=== PATIENT | male | born 1990 | race Two or more races ===

== ENCOUNTER → 2016-03-01 | Outpatient (REF) | payer OTHER ==
[2016-03-01 14:11] LABS: PROGRESSIVE MOTILITY (a) 38 % (>=32)
[2016-03-01 14:12] LABS: % NORMAL FORMS 10 % (>=4); IMMOTILITY 55 %; NON PROGRESSIVE MOTILITY (c) 7 %; SPERM# 374.1 M/Ejac (33-46); TOTAL MOTILITY 45 % (>=40)
== END ==
LOC: M LAB REF 14:00
DX: Z31.41 Encounter for fertility testing (principal)

== ENCOUNTER → 2016-04-15 | Outpatient (REF) | payer OTHER | LOC: M SFHCLERA 11:09 | PROVIDERS: ATTEND Nurse Practitioner Family | DX: J02.9 Acute pharyngitis, unspecified (principal) ==

== ENCOUNTER 2016-07-11 09:50 | Emergency (ER) | payer OTHER ==
[~2016-07-11] VITALS: Ht 175.3 cm; Wt 86.2 kg
[2016-07-11 09:51] VITALS: BP 181/98
[2016-07-11] MEDS ORDERED: EQL525SU4 PO (10:09)
[2016-07-11] MEDS ORDERED: BUPR300T34 PO (10:09)
[2016-07-11] MEDS ORDERED: SERT-155 PO (10:09)
[2016-07-11] MEDS ORDERED: OMEP20CA3 PO (10:09)
[2016-07-11] MEDS ORDERED: TRAZ50TA4 PO (10:09)
[2016-07-11] MEDS ORDERED: IMOD2CAP PO (11:28)
== END 2016-07-11 11:38 | disposition home or self-care (01) ==
LOC: M ED 11:28
DX: R19.7 Diarrhea, unspecified (principal); R11.0 Nausea; H92.09 Otalgia, unspecified ear; K21.9 Gastro-esophageal reflux disease without esophagitis; F99 Mental disorder, not otherwise specified; Z79.899 Other long term (current) drug therapy

== ENCOUNTER → 2016-08-28 | Outpatient (CLI) | payer OTHER ==
[~2016-08-28] MED LIST: BUPR150T3 PO; BUPR300T34 PO; EQL525SU4 PO; IMOD2CAP PO; OMEP20CA3 PO; SERT-155 PO; TRAZ50TA11 PO
--- NOTE | 2016-08-29 19:13 | ECHO ---
DATE OF PROCEDURE: 08/28/2016 REFERRING PHYSICIAN: Dr. Stone INDICATION: Hypertension, palpitations. Study was performed on an outpatient basis. HEIGHT: 175 cm WEIGHT: 91 kg. DIMENSIONS : IVS: 0.9 LV: 4.9 LVPW: 0.9 LA: 3.0 Aorta 2.9 FINDINGS: The study is of good technical quality. Left ventricle is of normal size and systolic function with estimated LVEF 60-65%. Right ventricle is also normal size and systolic function. Both atria appear normal. All four cardiac valves appear normal. No pericardial effusion is noted. Inferior vena cava is normal size. Aortic root, aortic arch and abdominal aorta appear normal. Doppler interrogation reveals competent aortic valve without stenosis or insufficiency. There is no mitral and no tricuspid insufficiency. Pulmonic valve also appears functionally competent. Mitral inflow pattern and tissue Doppler imaging of mitral annulus reveal normal diastolic function. CONCLUSIONS: 1. Study is of good technical quality. 2. Normal LV size, systolic and diastolic function. 3. No valvular disease. 4. Normal central venous pressure. 5. Unable to estimate pulmonary artery pressure but no signs to suggest pulmonary hypertension. 6. Essentially normal echocardiogram. COMMENT: Subacute bacterial endocarditis is not recommended.
== END ==
LOC: M CARPUL 10:20
PROVIDERS: ATTEND Internal Medicine
DX: I10 Essential (primary) hypertension (principal); R01.2 Other cardiac sounds

== ENCOUNTER → 2016-09-10 | Outpatient (CLI) | payer OTHER ==
[2016-09-10 16:26] LABS: BASO % 0.3 % (0.0-1.0); EOS # 0.2 K/mm3 (0.0-0.50); EOS % 3.1 % (0.0-3.0); LARGE UNSTAINED CELL # 0.1 K/mm3 (0.0-0.4); LARGE UNSTAINED CELL % 1.5 % (0.0-4.0); LYMPH # 1.7 K/mm3 (1.5-6.5); LYMPH % 32.4 % (24.0-44.0); MEAN CORPUSCULAR HEMOGLOBIN 29.3 pg (27.0-33.0); MEAN CORPUSCULAR HGB CONC 35.6 g/dl (32.0-36.5); MEAN CORPUSCULAR VOLUME 82.4 fl (80.0-96.0); MONO # 0.4 K/mm3 (0.0-0.8); MONO % 7.1 % (0.0-5.0); NEUTROPHILS # 2.8 K/mm3 (1.8-7.7); NEUTROPHILS % 55.5 % (36.0-66.0); PLATELET COUNT, AUTOMATED 232 k/mm3 (150-450); RED CELL DISTRIBUTION WIDTH 12.7 % (11.5-14.5); WHITE BLOOD COUNT 5.1 K/mm3 (4.0-10.0)
[2016-09-10 16:54] LABS: ALBUMIN 4.1 GM/DL (3.2-5.2); ALBUMIN/GLOBULIN RATIO 1.52 (1.00-1.93); ALKALINE PHOSPHATASE 111 U/L (45-117); ALT/SGPT 72 U/L (12-78); ANION GAP 8 MEQ/L (8-16); AST/SGOT 20 U/L (15-37); BILIRUBIN,TOTAL 0.7 MG/DL (0.2-1.0); BLOOD UREA NITROGEN 12 MG/DL (7-18); CALCIUM LEVEL 8.9 MG/DL (8.5-10.1); CARBON DIOXIDE LEVEL 24 MEQ/L (21-32); CHLORIDE LEVEL 104 MEQ/L (98-107); CREATININE FOR GFR 0.81 MG/DL (0.70-1.30); FREE T4 0.95 NG/DL (0.76-1.46); GLOMERULAR FILTRATION RATE > 60.0 (>60); GLUCOSE, FASTING 101 MG/DL (70-105); POTASSIUM SERUM 3.6 MEQ/L (3.5-5.1); SODIUM LEVEL 136 MEQ/L (136-145); TOTAL PROTEIN 6.8 GM/DL (6.4-8.2)
[2016-09-10 17:06] LABS: ERYTHROCYTE SEDIMENTATION RATE 6 mm/hr (0-15)
--- NOTE | 2016-09-11 02:48 | REP ---
Clinical: Abdominal pain. Sitz marker study. Technique: Two supine views of the abdomen and pelvis. Findings: Two supine views of the abdomen and pelvis demonstrate nonspecific bowel gas pattern with findings to suggest moderate fecal stasis and possible constipation. No residual sitz markers are identified. No organomegaly. No abnormal calcifications. Skeletal structures are intact. Impression: Cannot exclude moderate fecal stasis/constipation. Signed by Tonny Pimentel MD 09/11/2016 02:41 A
== END ==
LOC: M LAB 08:00
PROVIDERS: ATTEND Physician Assistant Medical
DX: R19.7 Diarrhea, unspecified (principal)

== ENCOUNTER → 2016-09-17 | Outpatient (REF) | payer OTHER | LOC: M LAB REF 15:53 | PROVIDERS: ATTEND Physician Assistant Medical | DX: R19.7 Diarrhea, unspecified (principal) ==

== ENCOUNTER 2016-09-25 13:54 | Outpatient (CLI) | payer OTHER ==
[~2016-09-25] VITALS: Ht 175.3 cm; Wt 88.5 kg
[2016-09-25] MEDS ORDERED: NS 1,000 ML IV ONE (14:00)
[2016-09-25] MEDS ORDERED: PROPOFOL 200 MG/20 ML VIAL As Ordered ONE (16:02)
[2016-09-25] MEDS ORDERED: LIDOCAINE 2% INJ 100 MG/5 ML SDV (FOR ANES.) As Ordered ONE (16:02)
--- NOTE | 2016-09-25 16:11 | ROOR ---
Patient Name: Silverio Fiore Procedure Date: 09/25/2016 4:00 PM Date of : 1990 Age: 26 Room: [facility] Gender: Male Note Status: Finalized Procedure: Upper GI endoscopy Indications: Epigastric abdominal pain, Functional Dyspepsia, Heartburn Providers: Carlos KAPOOR MD Referring MD: LEONARDO PATTERSON MD Requesting Provider: Medicines: Monitored Anesthesia Care Complications: No immediate complications. Procedure: Pre-Anesthesia Assessment: - The heart rate, respiratory rate, oxygen saturations, blood pressure, adequacy of pulmonary ventilation, and response to care were monitored throughout the procedure. The Endoscope was introduced through the mouth, and advanced to the second part of duodenum. The upper GI endoscopy was accomplished without difficulty. The patient tolerated the procedure well. Findings: The esophagus was normal. The stomach was normal. The examined duodenum was normal. Impression: - Normal esophagus. - Normal stomach. - Normal examined duodenum. - No specimens collected. Recommendation: - Continue present medications. Carlos Kapoor MD Carlos KAPOOR MD 09/25/2016 4:10:51 PM This report has been signed electronically. Number of Addenda: 0 Note Initiated On: 09/25/2016 4:00 PM Estimated Blood Loss: Estimated blood loss: none.
--- NOTE | 2016-09-25 16:26 | ROOR ---
Patient Name: Silverio Fiore Procedure Date: 09/25/2016 4:01 PM Date of : 1990 Age: 26 Room: [facility] Gender: Male Note Status: Finalized Procedure: Colonoscopy Indications: Clinically significant diarrhea of unexplained origin, Irritable bowel syndrome with constipation, Mixed irritable bowel syndrome Providers: Carlos KAPOOR MD Referring MD: LEONARDO PATTERSON MD Requesting Provider: Medicines: Monitored Anesthesia Care Complications: No immediate complications. Procedure: Pre-Anesthesia Assessment: - The heart rate, respiratory rate, oxygen saturations, blood pressure, adequacy of pulmonary ventilation, and response to care were monitored throughout the procedure. The Colonoscope was introduced through the anus and advanced to 5 cm into the ileum. The colonoscopy was performed without difficulty. The patient tolerated the procedure well. The quality of the bowel preparation was good. Findings: The perianal and digital rectal examinations were normal. The terminal ileum appeared normal. The colon (entire examined portion) appeared normal. Small Internal Hemorrhoids. Biopsies for histology were taken with a cold forceps from the colon and terminal ileum for evaluation of microscopic colitis. Impression: - The examined portion of the ileum was normal. - The entire examined colon is normal. - Small Internal Hemorrhoids. - (Irritable Bowel Syndrome/IBS suspected.) - Biopsies were taken with a cold forceps from the colon and terminal ileum for evaluation of microscopic colitis. Recommendation: - Use fiber, for example Citrucel, Fibercon, Konsyl or Metamucil. - Telephone endoscopist for pathology results in 2 weeks. Carlos Kapoor MD Carlos KAPOOR MD 09/25/2016 4:25:56 PM This report has been signed electronically. Number of Addenda: 0 Note Initiated On: 09/25/2016 4:01 PM Estimated Blood Loss: Estimated blood loss: none.
[2016-09-25 16:58] VITALS: BP 147/68
== END 2016-09-25 17:02 | disposition home or self-care (01) ==
LOC: M OPP 13:54
PROVIDERS: ATTEND Internal Medicine Gastroenterology
DX: R19.7 Diarrhea, unspecified (principal); K58.2 Mixed irritable bowel syndrome; K64.8 Other hemorrhoids; R10.13 Epigastric pain; K30 Functional dyspepsia; F41.9 Anxiety disorder, unspecified; F32.9 Major depressive disorder, single episode, unspecified; R51 Headache; R06.83 Snoring; M54.9 Dorsalgia, unspecified; Z88.8 Allergy status to other drugs, medicaments and biological substances; Z79.899 Other long term (current) drug therapy

== ENCOUNTER → 2017-01-24 | Outpatient (CLI) | payer OTHER ==
--- NOTE | 2017-01-29 13:02 | SLEEPCENT ---
DATE OF PROCEDURE: 01/24/2017 ORDERED BY: SANDI Snyder Nocturnal polysomnography was performed for evaluation of sleep physiology in this patient with a history of snoring and nonrestorative sleep. 8 hours and 52 minutes of data were reviewed. There were 422 minutes of sleep identified. Sleep latency was prolonged at 53 minutes. Rapid eye movement (REM) was prolonged at 190 minutes. Sleep architecture was fair with significant fragmentation. There were 2 REM cycles appreciated. Overall sleep efficiency was 80.6%. The electrocardiogram showed a sinus rhythm with an average heart rate of 58 beats per minute. Minor rate variability was seen 50-82 beats per minute. EEG showed significant alpha intrusion into non REM stages. There were only 4 respiratory events identified of 10 seconds in duration or greater for an apnea hypopnea index within normal limits of 0.6. Some snoring was appreciated. Respiratory related arousals occurred only 0.7 times per hour, and there were no significant oxygen desaturations. Limb activity was seen quite frequently during the study. The limb movement arousal index was 10.9. Remaining of measures of sleep physiology were normal. IMPRESSION: 1. Periodic limb movement disorder (G47.61). Limb movement arousal index 10.9. 2. Alpha intrusion into non REM sleep. RECOMMENDATION: Interventions to reduce the frequency arousal from limb activity should improve the quality of the patient's sleep.
== END ==
LOC: M SLEEP 19:40
PROVIDERS: ATTEND Nurse Practitioner Adult Health
DX: G47.61 Periodic limb movement disorder (principal)